=== PATIENT | female | born 1995 ===

== ENCOUNTER 2020-09-13 14:15 | Outpatient (REF) | payer OTHER, SELFPAY ==
[2020-09-16 22:51] LABS: Patient Race White; SARS-CoV-2 RNA Undetected (Undetected); SARS-CoV-2 Specimen Source Nasal
== END 2020-09-13 14:35 ==
LOC: NCHCN 14:15
PROVIDERS: Visit Provider Nurse Practitioner Family
DX: Z11.59 Encounter for screening for other viral diseases (principal)
CPT/HCPCS: U0003